=== PATIENT | male | born 1980 | race Caucasian/White ===

== ENCOUNTER 2018-03-28 18:59 | Emergency (ER) | payer OTHER ==
[~2018-03-28] VITALS: Ht 180.3 cm; Wt 97.5 kg
[~2018-03-28 18:59] MED LIST: ANTIDEPRESSANT; CELEXA20 MG PO; DOXYCYCLINE 10100 M1 PO
[2018-03-28 19:03] VITALS: BP 124/83
[2018-03-28] MEDS ORDERED: CIPROFLOXIN HC2.5 M1 OPHTHALMIC (19:28)
== END 2018-03-28 19:39 | disposition home or self-care (01) ==
LOC: M.ERS 18:59
DX: H57.8 Other specified disorders of eye and adnexa (principal); F17.200 Nicotine dependence, unspecified, uncomplicated; Z90.89 Acquired absence of other organs; Z88.0 Allergy status to penicillin